=== PATIENT | female | born 1940 | race Caucasian/White ===

== ENCOUNTER 2016-05-08 10:48 | Inpatient (IN) | payer MEDICARE, SELFPAY ==
[~2016-05-08] VITALS: Ht 149.9 cm; Wt 59.0 kg
[2016-05-08] MEDS ORDERED: ALBU17IN2 INH (11:08)
[2016-05-08] MEDS ORDERED: ACET500C PO (11:08)
[2016-05-08] MEDS ORDERED: CART240C PO (11:10)
[2016-05-08] MEDS ORDERED: NORC5TAB PO (11:11)
[2016-05-08] MEDS ORDERED: LISI40TAB PO (11:13)
[2016-05-08] MEDS ORDERED: LABE20TAB PO (11:14)
[2016-05-08] MEDS ORDERED: AUGM875T27 PO (11:14)
[2016-05-08 11:44] LABS: BASO % 0.3 % (0.0-1.0); EOS # 0.2 K/mm3 (0.0-0.50); EOS % 1.4 % (0.0-3.0); LARGE UNSTAINED CELL # 0.1 K/mm3 (0.0-0.4); LARGE UNSTAINED CELL % 0.9 % (0.0-4.0); LYMPH # 0.9 K/mm3 (1.5-4.5); LYMPH % 7.6 % (24.0-44.0); MEAN CORPUSCULAR HEMOGLOBIN 31.6 pg (27.0-33.0); MEAN CORPUSCULAR HGB CONC 32.2 g/dl (32.0-36.5); MONO # 0.5 K/mm3 (0.0-0.8); MONO % 4.3 % (0.0-5.0); NEUTROPHILS # 9.5 K/mm3 (1.8-7.7); NEUTROPHILS % 85.6 % (36.0-66.0); PLATELET COUNT, AUTOMATED 512 k/mm3 (150-450); WHITE BLOOD COUNT 11.1 K/mm3 (4.0-10.0)
[2016-05-08] MEDS ORDERED: NS 500 ML IV ONE (11:45)
[2016-05-08 12:02] LABS: ALBUMIN/GLOBULIN RATIO 0.39 (1.00-1.93); ALKALINE PHOSPHATASE 79 U/L (45-117); ALT/SGPT 27 U/L (12-78); ANION GAP 10 MEQ/L (8-16); AST/SGOT 34 U/L (15-37); BILIRUBIN,DIRECT 0.2 MG/DL (0.0-0.2); BILIRUBIN,TOTAL 0.5 MG/DL (0.2-1.0); BLOOD UREA NITROGEN 41 MG/DL (7-18); CALCIUM LEVEL 13.3 MG/DL (8.8-10.2); CARBON DIOXIDE LEVEL 28 MEQ/L (21-32); CHLORIDE LEVEL 99 MEQ/L (98-107); CREATININE FOR GFR 0.94 MG/DL (0.55-1.02); GLOMERULAR FILTRATION RATE > 60.0 (>39); GLUCOSE, FASTING 96 MG/DL (83-110); POTASSIUM SERUM 4.3 MEQ/L (3.5-5.1); SODIUM LEVEL 137 MEQ/L (136-145); TOTAL PROTEIN 7.1 GM/DL (6.4-8.2)
[2016-05-08] MEDS ORDERED: NS 1,000 ML IV ONE (12:30)
[2016-05-08] MEDS ORDERED: ACET50TAOT PO (14:11)
[2016-05-08] MEDS ORDERED: SENO8.6T2 PO (14:11)
[2016-05-08] MEDS ORDERED: STOO100C PO (14:11)
[2016-05-08] MEDS ORDERED: ISOVUE-370 76% 100ML VIAL (Q9967) As Ordered ONE (15:06)
[2016-05-08] MEDS ORDERED: NS 1,000 ML IV SCH (15:30)
[2016-05-08] MEDS ORDERED: MOM 30ML SUSPENSION UDC PO PRN (15:30)
[2016-05-08] MEDS ORDERED: ALBUTEROL 90 MCG/ACT 8GM HFA INHALER INH PRN (15:30)
[2016-05-08 16:00] VITALS: BP 172/58
[2016-05-08] MEDS ORDERED: LISINOPRIL 40 MG TAB PO ONE (17:30)
--- NOTE | 2016-05-08 17:31 | HPE ---
DATE OF ADMISSION: 05/08/2016 Ms. Nguyen is a patient of Dr. Griggs. CHIEF COMPLAINT: Lack of energy. SUMMARY OF PRESENTATION: This is a 76-year-old female who has had decreasing levels of activity over a period of 3 to 4 months. She has been sleeping in a chair on the first floor because she does not have the energy at night to go upstairs. It has been much worse since 04/19/2016 when she had a skin cancer removed from her right mandibular region at [facility]. Since that time, she has had decreasing appetite. She has increasing weakness. She has been unable to get out of bed without help. Has been unable to get out of the bath without help. She currently lives alone, but her family has been staying with her sometimes at night and coming twice a day to check on her. Yesterday they could not get her up out of the tub. She has been on the bed and recliner enough that she has developed a decubitus ulcer. She has not had a bowel movement since the . The family has been quite concerned about her and brought her to the hospital today. In the hospital some workup was begun and she was found to be hypercalcemic, and I was called for admission. SOCIAL HISTORY: She lives in [place], where she has lived for many years. She says that she quit smoking 30 years ago, but family says that she has taken up smoking again. Not using any alcohol. Before her recent fatigue and lack of energy, she has been independent in her activities of daily living. PAST MEDICAL HISTORY: Notable for: 1. Hypertension. 2. Pain in both lower extremities, which has been chronic. 3. Bilateral carotid bruits. 4. Basal cell carcinoma, presumably on her right face. PAST SURGICAL HISTORY: Notable for: 1. Tubal ligation. 2. Exploratory laparoscopy in 1973. 3. Removal of the skin cancer from her face in April 2016. FAMILY HISTORY: Both parents are . REVIEW OF SYSTEMS: Notable for no headache. No visual changes. She is easily fatigued. Decreasing appetite. No chest pain. No shortness of breath. She has never had a colonoscopy. She has never had a mammogram. She does have what appears to be orthopnea and lower extremity edema, which is a new finding. She does not describe any abdominal discomfort. She has had some nausea recently but no vomiting. No dysuria. No focal weakness. No history of seizures. Otherwise, unremarkable. PHYSICAL EXAMINATION: VITAL SIGNS: Temperature is 97.3, pulse 74, respiratory rate 16, blood pressure 150/67, 94% on room air. Input and output notable for a positive fluid balance of 1500. Weight 63 kg. She is awake, appropriately interactive, although she appears tired. Body Mass Index (BMI) is 28.3. HEENT: Head is normocephalic. Sinuses are nontender. Pupils are equally round and reactive. Anicteric. Nasal septum is midline. Mucous membranes are tacky. Neck is supple. No cervical or supraclavicular adenopathy. LUNGS: Breathing is symmetrically diminished. I:E ratio is 1:3. No wheezes, rales or rhonchi. No accessory muscle use. She is speaking in complete sentences. HEART: Distant sounding. Normal S1, S2. Radial pulses are 2+. No costovertebral angle tenderness. No sacral edema. ABDOMEN: Doughy, soft, mild diffuse tenderness without rebound or guarding. There are no cervical, supraclavicular, axillary, epitrochlear, inguinal area nodes noted. BREASTS: Examination is done, which shows fibrocytic changes posterior to the nipple on the right breast. EXTREMITIES: There is trace bilateral lower extremity edema. On the sacrum there is a less than dime-sized, stage II decubitus with a larger area of stage I decubitus surrounding. NEUROLOGIC: Strength in the upper extremities is 4+, lower extremities is 4+. Facies are symmetrical. She has a flattened affect. White cell count is 11.1, hemoglobin 11, platelets are 512. Sodium is 137, potassium 4.3, chloride 99, bicarbonate 28, BUN 41, creatinine 0.9, glucose 96, calcium is 13.3 with a ionized calcium of 6.7, SPEP is pending. Vitamin D level is pending. TSH is within normal limits. Intact PTH is pending. She does have an area of eschar on her right mandibular area, which is quite large. There is minimal erythema around the edge and evidence of granulation tissue. It is nontender. Wound culture was sent. ASSESSMENT: This is a 76-year-old with hypercalcemia, who will be admitted for at least 2 midnights for further workup. Concern would be that this is hypercalcemia of malignancy, given the fact that she has had no screening examinations and has never had a calcium level before. PLAN: 1. For hypercalcemia. The patient will be started empirically on IV fluids. We will check a vitamin D level, intact PTH level. Protein is high relative to a low albumin. We will check SPEP, UPEP, screening mammogram is ordered, especially since she has findings on the right breast, which are likely fibrocystic changes based on my examination. We will also get a CT of the chest and a CT of the abdomen and pelvis. 2. The patient has right facial wound, status post surgery. We will get old records. It does not appear to be infected to me at this time. We will attempt to obtain pathology results as well. 3. The patient has constipation, most likely related to pain medications post procedure, as well as the patient is prone constipation and perhaps worsened with hypercalcemia. We will start a bowel regimen. 4. The patient has hypertension. We will continue blood pressure medications with hold parameters and monitor clinically. 5. Deep vein thrombosis (DVT) prophylaxis will be mechanical, as the patient has a strong aversion to needles. MADELINE
[2016-05-08] MEDS: LISINOPRIL 40 MG TAB PO SCH (17:53)
[2016-05-08] MEDS: BISACODYL 10 MG SUPP PR PRN (18:59)
[2016-05-08 19:18] VITALS: BP 170/60
[2016-05-08] MEDS ORDERED: MAGNESIUM CITRATE 300 ML BTL PO ONE (19:30)
[2016-05-08] MEDS: LABETALOL 200 MG TAB PO SCH (20:31)
[2016-05-08 23:30] VITALS: BP 170/60
[2016-05-09] VITALS (8 sets, daily range): BP systolic 122–158; BP diastolic 52–70
[2016-05-09] MEDS ORDERED: FUROSEMIDE 40 MG/4 ML VIAL (J1940) IV ONE
[2016-05-09] MEDS: hydrALAZINE INJ 20 MG/ML VIAL IV SCH ×3 (00:54→16:51)
[2016-05-09 05:45] LABS: MEAN CORPUSCULAR HEMOGLOBIN 31.4 pg (27.0-33.0); MEAN CORPUSCULAR HGB CONC 32.1 g/dl (32.0-36.5); MEAN CORPUSCULAR VOLUME 97.8 fl (80.0-96.0); RED CELL DISTRIBUTION WIDTH 15.1 % (11.5-14.5); WHITE BLOOD COUNT 12.6 K/mm3 (4.0-10.0)
[2016-05-09 06:05] LABS: ALBUMIN 1.7 GM/DL (3.2-5.2); ALBUMIN/GLOBULIN RATIO 0.41 (1.00-1.93); ALKALINE PHOSPHATASE 72 U/L (45-117); ALT/SGPT 27 U/L (12-78); ANION GAP 10 MEQ/L (8-16); AST/SGOT 41 U/L (15-37); BILIRUBIN,TOTAL 0.4 MG/DL (0.2-1.0); BLOOD UREA NITROGEN 25 MG/DL (7-18); CALCIUM LEVEL 11.6 MG/DL (8.8-10.2); CARBON DIOXIDE LEVEL 28 MEQ/L (21-32); CHLORIDE LEVEL 105 MEQ/L (98-107); CREATININE FOR GFR 0.71 MG/DL (0.55-1.02); GLOMERULAR FILTRATION RATE > 60.0 (>39); GLUCOSE, FASTING 101 MG/DL (83-110); MAGNESIUM LEVEL 2.2 MG/DL (1.8-2.4); POTASSIUM SERUM 3.6 MEQ/L (3.5-5.1); SODIUM LEVEL 143 MEQ/L (136-145); TOTAL PROTEIN 5.8 GM/DL (6.4-8.2)
[2016-05-09 07:36] LABS: TOTAL PROTEIN 7.1 GM/DL (6.4-8.2)
--- NOTE | 2016-05-09 07:52 | REP ---
CT CHEST WITH IV CONTRAST: CT chest is performed with the intravenous administration of 100 mL of Isovue 370. Sagittal and coronal reconstruction images are performed. There is a huge necrotic mass in the right upper lob anteriorly which borders the right hilum and mediastinum with a broad base and extends to the anterior chest wall and invades the chest wall. The mass measures approximately 9.8 x 9.6 cm. Central necrosis is present and there is peripheral irregular enhancement. There is invasion of the right lateral margin of the sternum. There is invasion and destruction at the anterior end of the right 4th rib. There is no obstruction of the superior vena cava although the mass is directly lateral to the superior vena cava. The mass is contiguous with adenopathy in the right hilum measuring 2.7 x 2.4 cm. There appears to be necrotic adenopathy in the right precarinal region 2.9 x 2.2 cm. There are a few subcentimeter lymph nodes in the subcarinal region. There is a nodule in the right upper lobe more superiorly measuring 7 mm in diameter. Another nodule is seen in the right lower lobe peripherally measuring 8 mm in diameter. A nodule is seen in the left lower lobe 1.4 cm in diameter. Moderate bilateral pleural effusions are seen right greater than left. There is bibasilar atelectasis/infiltrate. Small pericardial effusion is also present. The heart is not enlarged. There are atherosclerotic calcifications of the thoracic aorta without aneurysm. There are degenerative changes of the spine. The huge right upper lobe mass does appear to invade the pericardium at the junction of the superior vena cava and right atrium. IMPRESSION: Huge right upper lobe mass invades the right anterior chest wall, with destruction of a portion of the anterior right 4th rib and a portion of the medial margin of the sternum. The mass extends to the right hilum with contiguous adenopathy at that location. There is also a necrotic mediastinal adenopathy. Two smaller right lung nodules are seen and there is a left lung nodule as well. There are moderate bilateral pleural effusions and bibasilar atelectasis/infiltrate. Small pericardial effusion. The huge right upper lobe mass does appear to invade the pericardium at the junction of the superior vena cava and right atrium. Signed by Tye Gomes MD 05/09/2016 04:09 P
--- NOTE | 2016-05-09 07:55 | REP ---
CT ABDOMEN AND PELVIS WITH CONTRAST: TECHNIQUE: Axial contrast enhanced images from the lung bases to the pubic symphysis using 100 mL Isovue 370 intravenous contrast material with multiplanar reformations. The liver, spleen, and pancreas demonstrate no mass. The adrenal glands are diffusely thickened without a discrete mass. A small cyst is seen in the mid right kidney posteriorly. There is no hydronephrosis. There is ectasia of the distal abdominal aorta with moderate atherosclerotic calcification. The right common iliac artery appears stenotic. No significant adenopathy is seen in the abdomen or pelvis. The gallbladder appears unremarkable. There is no bowel wall thickening. There is no free air or free fluid. I see no pelvic mass. The urinary bladder appears unremarkable. IMPRESSION: Diffuse thickening of the adrenal glands without a discrete mass. Right renal cyst. No suspicious mass or adenopathy. 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 Signed by Tye Gomes MD 05/09/2016 04:10 P
--- NOTE | 2016-05-09 08:19 | ECGEPIP ---
Stationary ECG Study [facility] Test Date: 2016-05-09 Pat Name: TREV GEORGE Department: Room: [place] [address] Gender: F Material Carrier: CIELO : 1940 Requested By: CHRISTOPHER Stewart Order Number: [id number] Reading MD: Coleen Ramirez Measurements Intervals [place] Rate: 50 P: 5 WI: 162 QRS: -28 QRSD: 113 T: 94 QT: 425 QTc: 388 Interpretive Statements SINUS BRADYCARDIA BORDERLINE LEFT AXIS DEVIATION MODERATE INTRAVENTRICULAR CONDUCTION DELAY Incomplete left bundle branch block ST & T-WAVE ABNORMALITY CLINICAL CORRELATION NO PRIOR Electronically Signed On 05-09-2016 8:19:08 EST by Coleen Ramirez
[2016-05-09] MEDS: FLEET ENEMA PR PRN ×2 (10:03→10:23)
[2016-05-09] MEDS: BISACODYL 10 MG SUPP PR PRN (10:23)
--- NOTE | 2016-05-09 10:24 | REPMRS ---
Patient History The patient states she had a clinical breast exam in May 2016. Patient is postmenopausal. No known family history of cancer. Best films possible due to patient condition and exam done in wheelchair Digital Mammo Diagnostic Bilateral: May 08, 2016 - Exam #: [id number] Bilateral CC and MLO view(s) were taken. Technologist: Rafaela Carrasco, Technologist FINDINGS: There are scattered fibroglandular densities. There is no evidence of cancer on this mammogram. Large coarse benign appearing calcifications are present. ASSESSMENT: BI-RADS/ACR category 2 mammogram. Benign finding(s). Recommendation Routine screening mammogram of both breasts in 1 year (for women over age 40). This mammogram was interpreted with the aid of an FDA-approved computer-aided dectection system. Electronically Signed By: Tye Gomes MD 05/09/16 [id number]
[2016-05-09] MEDS: NS 1,000 ML IV SCH ×2 (11:13)
[2016-05-09] MEDS ORDERED: LIDOCAINE 1% MDV 20ML VIAL As Ordered ONE (11:51)
[2016-05-09 12:29] LABS: ALBUMIN 2.46 GM/DL (3.29-5.55); ALBUMIN % 34.6 % (55.8-66.1); GAMMA GLOBULIN % 20.9 % (11.1-18.8)
--- NOTE | 2016-05-09 13:56 | IPNPDOC ---
Text Note Date of Service The patient was seen on 05/09/16. NOTE Subjective: Patient is a 76 year old female with a PMHx of HTN, Chronic pain in b/ l Lower Extremities, b/l Carotid Bruits, Basal Cell CA - s/p resection (04/19) who presented to the ER with complaints of worsening weakness and fatigue for 3- 4 months. She is unable to complete her activities of daily living and unable to ambulate at this point. She has been in a recliner for a prolonged period of time and has developed a decubitus ulcer. She has been noted to have constipation, has not had a bowel movement since . Patient was brought to the ER and was found to have hypercalcemia. Patient was started on IV fluid hydration. Overnight on 05/08-05/09 patient became hypoxic and was started on nasal cannula oxygen and given lasix. Patient was seen and examined at the bedside. She does not have any complaints. Objective: Vitals (See below) General: Lying in bed, no acute distress, comfortable, AAOx3 HEENT: NC, AT CVS: RRR, +S1S2 Lungs: Fair air entry b/l, + crackles at b/l lung kennedy Abdomen: Soft, ND, NT, +BSx4 Extremities: +PPx4, - Edema, - Calf tenderness Assessment and plan 1. Symptomatic hypercalcemia - likely 2/2 malignancy - Presented with weakness, fatigue and constipation, flattened affect - Physical reveals palpable mass on chest wall - Presenting corrected calcium at 14.5; currently trending down at 13.4 - PTH, PTHrP and Vitamin D (25OH) pending - CT chest 05/09: huge right upper lobe mass invades R anterior chest wall, destruction of anterior R 4th rib, extends to r hilum and pericardium, + necrotic adenopathy - Will c/w IV fluid hydration and Lasix 40 IV Q12H 2. Large mass at right upper lobe - highly suspicious of malignancy - will go for CT guided biopsy today for tissue diagnosis - will discuss with oncology; patient doesn't appear to be a good surgical candidate or a chemotherapy candidate 3. Acute hypoxic respiratory failure - likely 2/2 fluid overload - will c/w lasix 4. Constipation - possibly 2/2 hypercalemia - patient denied any abdominal pain or symptoms - patient has had a large BM on 05/09 AM - s/p Enema - will c/w stool softeners 5. Right facial wound - 2/2 to Basal Cell CA resection - s/p surgery on 04/19 - will obtain records 6. Macrocytic anemia - Hg slightly lower than admission - likely 2/2 dilution from IV fluid hydration - Will continue to follow 7. HTN - BP well controlled - c/w Lisinopril and Furosemide 8. DVT prophylaxis - c/w SCDs VS,Fishbone, I+O VS, Fishbone, I+O Laboratory Tests 05/09/16 04:55 Calcium Level 11.6 H, Aspartate Amino Transf (AST/SGOT) 41 H, Alanine Aminotransferase (ALT/SGPT) 27, Alkaline Phosphatase 72, Total Bilirubin 0.4, Total Protein 5.8 L, Albumin 1.7 L, Red Blood Count 3.09 L, Mean Corpuscular Volume 97.8 H, Mean Corpuscular Hemoglobin 31.4, Mean Corpuscular Hemoglobin Concent 32.1, Red Cell Distribution Width 15.1 H Vital Signs Date Time Temp Pulse Resp B/P Pulse Ox O2 Delivery O2 Flow Rate FiO2 05/09/16 08:00 138/66 05/09/16 08:00 96.7 52 18 95 Nasal Cannula 2.0 I&O- Last 24 Hours up to 6 AM 05/09/16 06:00 Intake Total 2490 ml Output Total 1150 ml Balance 1340 ml ABI CHU MD May 09, 2016 13:56
--- NOTE | 2016-05-09 15:23 | REP ---
SINGLE VIEW CHEST: Single AP view of the chest is performed status post right lung biopsy. There is no pneumothorax. The large right lung mass is seen opacifying the majority of the right hemithorax. IMPRESSION: No pneumothorax status post right lung biopsy. Signed by Tye Gomes MD 05/09/2016 04:19 P
[2016-05-09] MEDS: FUROSEMIDE 40 MG/4 ML VIAL (J1940) IV SCH (16:52)
--- NOTE | 2016-05-09 17:20 | REP ---
ULTRASOUND GUIDED RIGHT LUNG BIOPSY: The procedure was performed under the direct supervision of Dr. Gomes. The patient has a history of a right upper lobe mass seen on a previous CAT scan dated 05/08/2016. The risks and benefits of the procedure were explained and informed consent was obtained by the health care proxy. The right upper lobe lung mass was localized using ultrasound guidance. The skin was prepped and draped in a sterile fashion. 1% Xylocaine was used as a local anesthetic. Using ultrasound guidance a 19/20-gauge coaxial needle biopsy system was inserted and advanced into the mass. 3 core biopsy samples were obtained and sent to the lab. The patient tolerated the procedure well and there were no immediate complications. Reviewed by ROSE MARIE Patino 05/10/2016 01:27 PEdited and Signed by Tye Gomes MD 05/10/2016 08:04 P
[2016-05-09] MEDS: LISINOPRIL 40 MG TAB PO SCH (19:50)
[2016-05-09] MEDS: LABETALOL 200 MG TAB PO SCH (19:51)
[2016-05-09] MEDS: NORCO, ANEXSIA 5/325MG TABLET (HYDROcodone/ACETAMINOPHEN) PO PRN (19:51)
[2016-05-09] MEDS: AQUAPHOR **100GM** OINT TOP SCH (19:52)
--- NOTE | 2016-05-09 20:26 | ECGEPIP ---
Stationary ECG Study [facility] - ED Test Date: 2016-05-08 Pat Name: TREV GEORGE Department: Room: - Gender: F Pomology Teacher: lashonda : 1940 Requested By: Conner Olmos Order Number: [id number] Reading MD: Conner Cruz Measurements Intervals [place] Rate: 75 P: MO: 0 QRS: -29 QRSD: 112 T: 141 QT: 396 QTc: 445 Interpretive Statements [employer] RBBB ST DEVIATION AND MODERATE T-WAVE ABNORMALITY, CONSIDER LATERAL ISCHEMIA NO PRIORS Electronically Signed On 05-09-2016 20:25:43 EST by Conner Cruz
[2016-05-09] MEDS: ONDANSETRON 4MG/2ML VIAL (J2405) IV PRN (21:01)
[2016-05-10 04:00] VITALS: BP 130/62
[2016-05-10] MEDS: ACETAMINOPHEN TAB 650MG DOSE (2X325MG) PO PRN ×2 (04:02→14:18)
[2016-05-10 05:57] LABS: MEAN CORPUSCULAR HEMOGLOBIN 32.2 pg (27.0-33.0); MEAN CORPUSCULAR VOLUME 100.5 fl (80.0-96.0); RED CELL DISTRIBUTION WIDTH 15.1 % (11.5-14.5); WHITE BLOOD COUNT 9.3 K/mm3 (4.0-10.0)
[2016-05-10 06:11] LABS: ALBUMIN 1.7 GM/DL (3.2-5.2); ALBUMIN/GLOBULIN RATIO 0.44 (1.00-1.93); ALKALINE PHOSPHATASE 59 U/L (45-117); ALT/SGPT 32 U/L (12-78); ANION GAP 6 MEQ/L (8-16); AST/SGOT 38 U/L (15-37); BILIRUBIN,TOTAL 0.2 MG/DL (0.2-1.0); BLOOD UREA NITROGEN 19 MG/DL (7-18); CALCIUM LEVEL 10.6 MG/DL (8.8-10.2); CARBON DIOXIDE LEVEL 31 MEQ/L (21-32); CHLORIDE LEVEL 105 MEQ/L (98-107); GLOMERULAR FILTRATION RATE > 60.0 (>39); GLUCOSE, FASTING 103 MG/DL (83-110); MAGNESIUM LEVEL 2.1 MG/DL (1.8-2.4); POTASSIUM SERUM 3.5 MEQ/L (3.5-5.1); SODIUM LEVEL 142 MEQ/L (136-145); TOTAL PROTEIN 5.6 GM/DL (6.4-8.2)
[2016-05-10] MEDS: NS 1,000 ML IV SCH (07:51)
[2016-05-10] MEDS: hydrALAZINE INJ 20 MG/ML VIAL IV SCH ×3 (08:00→16:00)
[2016-05-10] MEDS ORDERED: INFLUENZA VIRUS VACCINE HIGH DOSE 0.5 ML SYRINGE (90662) IM ONE (09:00)
[2016-05-10] MEDS ORDERED: PREVNAR 13 VACCINE SYRINGE (CPT CODE:90670) IM ONE (09:00)
[2016-05-10] MEDS: FUROSEMIDE 40 MG/4 ML VIAL (J1940) IV SCH ×2 (10:35→18:46)
[2016-05-10] MEDS: AQUAPHOR **100GM** OINT TOP SCH ×2 (10:35→21:25)
[2016-05-10 12:00] VITALS: BP 134/50
--- NOTE | 2016-05-10 13:27 | IPNPDOC ---
Text Note Date of Service The patient was seen on 05/10/16. NOTE Subjective: 76 yo F was seen and examined at bedside. She denies any dizziness, blurred vision, fevers, chills, chest pain, SOB, nausea, vomiting, diarrhea, constipation, abdominal pain, rashes/lesions, urinary incontinence, dysuria, hematuria, hematochezia. Admits to a bowel movement yesterday which occurred after using an enema. Admits to weakness and fatigue. She reports no acute events overnight. Objective: Vitals: T 97.1 , P 55 (52~12 AM), RR 18 (20 at ~12 AM), BP 130/62 (84), Pulse Ox: 96% on 2L NC. I's/O's: 180/0 with +180 mLs balance. UO: 0 mLs. General: Pleasant thin cachectic elderly female resting comfortably in bed, sitting up eating breakfast. Has R-sided lower jaw facial wound/basal cell carinoma site. Patient awake, alert and oriented, verbal and able to answer questions appropriately. She does not appear to be in any acute distress. HEENT: Normocephalic Atraumatic. Grossly normal hearing bilaterally. Sclera Nonicteric. No external nasal lesions. Endocrinology: No thyromegaly. Neck: Supple. No cervical LAD bilaterally. Heart: Regular rate and rhythm, normal S1-S2. No murmurs, rubs, clicks or gallops Chest: Protuberance/mass on anterior upper mid-chest wall. Lungs: Clear to auscultation bilaterally with diminished breath sounds in all lung kennedy. Increased inspiratory to expiratory ratio. No wheezes, rales or rhonchi. Abdomen: Active bowel sounds, soft, nontender, no masses to palpation. Extremities: No clubbing, cyanosis, edema. Without amputations/deformities. No pedal edema. MSK: Can sit up without dizziness. Vascular: +2 radial pulses bilaterally. Psychiatric: Flat affect. Laboratory data: Please see below. Microbiology: Please see below. Wound Cx pending from facial lesion Pathology: FNA of Lung Biopsy Pending Electrophoresis: shows hypoalbuminemia. Increased alpha 1&2 fraction suggests acute inflammation but a co-migrating monoclonal band cannot be ruled out. Recommendation from pathology: serum and urine immunotyping. Atypical shape of gamma region noted. Unable to definitively determine the presence of atypical bands. Follow up in 6-9 months recommended if patient's symptoms warrant. Imaging: No new imaging today. 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 1) Hypercalcemia: Calcium trending down and was 10.6 today decreased from 11.6 yesterday. Continue IVF hydration and lasix. 2) Large RUL Lung Mass: CT guided biopsy/FNA done yesterday. Awaiting biopsy results. Will consider Oncology consult if malignancy identified. 3) Acute hypoxic respiratory failure: Patient satting 96% on 2 L nasal cannula. Continue lasix 40 mg BID. Monitor renal function and electrolytes with BMP. Replete electrolytes as necessary. 4) Leukocytosis: WBC trending down and WNL today at 9.3 from 12.6. Continue to monitor CBC and for fevers. 5) Macrocytic Anemia: Hgb decreased to 9.3 from 9.7 yesterday. Likely dilutional from IV hydration. Continue to monitor. 6) Hypertension: BP is stable and WNL. Continue lisinopril and lasix. 7) Constipation: Likely secondary to pain medication and hypercalcemia. Continue bowel regimen PRN: sodium biphosphate enema, magnesium hydroxide, dulcolax suppository. Had BM last night after enema. 8) Right Facial Wound/Secondary to Basal Cell Carcinoma Resection status-post Surgery on 04/19/16: continue to monitor. 9) DVT ppx: continue mechanically SCDs. Immunizations as per protocol. VS,Fishbone, I+O VS, Fishbone, I+O Laboratory Tests 05/10/16 05:29 Calcium Level 10.6 H, Aspartate Amino Transf (AST/SGOT) 38 H, Alanine Aminotransferase (ALT/SGPT) 32, Alkaline Phosphatase 59, Total Bilirubin 0.2, Total Protein 5.6 L, Albumin 1.7 L, Red Blood Count 2.88 L, Mean Corpuscular Volume 100.5 H, Mean Corpuscular Hemoglobin 32.2, Mean Corpuscular Hemoglobin Concent 32.0, Red Cell Distribution Width 15.1 H Vital Signs Date Time Temp Pulse Resp B/P Pulse Ox O2 Delivery O2 Flow Rate FiO2 3/7/17 08:00 115/50 05/10/16 08:00 96.3 54 20 98 Nasal Cannula 2.0 I&O- Last 24 Hours up to 6 AM 05/10/16 06:00 Intake Total 1620 ml Output Total 200 ml Balance 1420 ml GME ATTESTATION GME ATTESTATION My preceptor for this patient encounter was Dr. Bob Chavez, and was physically present in the building during the encounter and was fully available. As needed, all aspects of the patient interview, examination, medical decision making process, and medical care plan development were reviewed and approved by the preceptor. Preceptor is aware and concurs with the plan as stated in the body of this note and will attest to such by his/her cosignature. BOB SCHULTZ OGME-1 May 10, 2016 13:27
[2016-05-10 20:00] VITALS: BP 126/60
[2016-05-10] MEDS ORDERED: PAMIDRONATE DISODIUM FOR INJ 60 MG in D5W 1,000 ML IV ONE (20:00)
[2016-05-10] MEDS: LISINOPRIL 40 MG TAB PO SCH (21:03)
[2016-05-10] MEDS: NORCO, ANEXSIA 5/325MG TABLET (HYDROcodone/ACETAMINOPHEN) PO PRN (21:04)
[2016-05-10] MEDS: LABETALOL 200 MG TAB PO SCH (21:05)
[2016-05-10 23:59] VITALS: BP 132/62
[2016-05-11] MEDS: NS 1,000 ML IV SCH (02:22)
[2016-05-11 04:00] VITALS: BP 118/57
--- NOTE | 2016-05-11 05:49 | ECHO ---
DATE OF PROCEDURE: 05/10/2016 REFERRING PHYSICIAN: Dr. Ayush Guerrero. INDICATION: Localized edema. MEASUREMENTS: Left atrium: 4.1 cm Aortic root: 2.8 cm Ventricular septum: 1.19 cm Posterior wall: 1.15 cm Left ventricle diastole: 4.4 cm LVOT: 1.9 cm Inferior vena cava: 1.8 cm (more than 50% respiratory variation). DOPPLER MEASUREMENTS: Aortic valve velocity: 179 cm/s LVOT velocity: 95.9 cm/s LVOT VTI: 16.5 cm Very mild mitral regurgitation. Mitral E velocity: 92.5 cm/s Mitral A velocity: 99.3 cm/s Mitral deacceleration time: 218 ms Mild pulmonic regurgitation. MITRAL ANNULAR TISSUE DOPPLER: E-prime septal: 4.6 cm/s E-prime lateral: 7.6 cm/s DESCRIPTION: Rhythm was sinus. This was a moderately technically difficult echocardiogram. This was a 2D, M-mode, color flow Doppler and pulsed wave Doppler examination and included mitral annular tissue Doppler. CONCLUSIONS: 1. Normal left ventricle internal dimensions and wall thickness. No regional wall motion abnormalities. Normal LV systolic function. LVEF 65% by visual estimate. Grade 1 LV diastolic dysfunction. 2. Mild left atrial dilatation. 3. Small pericardial effusion. No diastolic chamber collapse. No significant respiratory variation of intracardiac velocities. 4. Suggestive of central venous pressure in the range of 5-10 mmHg. 5. Unable to adequately assess pulmonary artery systolic pressure or estimated RV systolic pressure on this study. 6. Mild aortic valve sclerosis of a 3-cusp aortic valve. 7. Mild mitral annular calcification. Very mild mitral regurgitation.
[2016-05-11 05:53] LABS: MEAN CORPUSCULAR HEMOGLOBIN 31.9 pg (27.0-33.0); MEAN CORPUSCULAR HGB CONC 31.8 g/dl (32.0-36.5); MEAN CORPUSCULAR VOLUME 100.5 fl (80.0-96.0); RED CELL DISTRIBUTION WIDTH 14.9 % (11.5-14.5); WHITE BLOOD COUNT 10.5 K/mm3 (4.0-10.0)
[2016-05-11 06:09] LABS: ALBUMIN 1.7 GM/DL (3.2-5.2); ALBUMIN/GLOBULIN RATIO 0.43 (1.00-1.93); ALKALINE PHOSPHATASE 61 U/L (45-117); ALT/SGPT 29 U/L (12-78); ANION GAP 5 MEQ/L (8-16); AST/SGOT 26 U/L (15-37); BILIRUBIN,TOTAL 0.2 MG/DL (0.2-1.0); BLOOD UREA NITROGEN 15 MG/DL (7-18); CALCIUM LEVEL 9.6 MG/DL (8.8-10.2); CARBON DIOXIDE LEVEL 32 MEQ/L (21-32); CHLORIDE LEVEL 100 MEQ/L (98-107); CREATININE FOR GFR 0.65 MG/DL (0.55-1.02); GLOMERULAR FILTRATION RATE > 60.0 (>39); GLUCOSE, FASTING 92 MG/DL (83-110); MAGNESIUM LEVEL 1.7 MG/DL (1.8-2.4); POTASSIUM SERUM 3.3 MEQ/L (3.5-5.1); SODIUM LEVEL 137 MEQ/L (136-145); TOTAL PROTEIN 5.7 GM/DL (6.4-8.2)
[2016-05-11 07:56] VITALS: BP 134/60
[2016-05-11] MEDS: hydrALAZINE INJ 20 MG/ML VIAL IV SCH ×2 (08:00)
[2016-05-11] MEDS ORDERED: POTASSIUM CHLORIDE 10 MEQ SR TABLET PO ONE ×2 (08:00→16:00)
--- NOTE | 2016-05-11 09:56 | REP ---
MRI BRAIN WITHOUT CONTRAST: HISTORY: Lung carcinoma. The examination is incomplete as only FLAIR and T2-weighted images were obtained. Areas of increased signal intensity on T2-weighted images are present in the periventricular and subcortical white matter. This represents small vessel ischemic disease. There is no intraparenchymal hemorrhage, infarct, mass or midline shift. The ventricular system and cortical sulci are dilated consistent with minimal volume loss. There is no extracerebral collection. Mucosal thickening is present in the right ethmoid sinus. IMPRESSION: 1. Limited examination demonstrating no definite mass. 2. Small vessel ischemic disease. 3. Minimal volume loss. Signed by Zane Pascual MD 05/11/2016 09:59 A
[2016-05-11] MEDS: FUROSEMIDE 40 MG/4 ML VIAL (J1940) IV SCH (10:13)
[2016-05-11] MEDS: AQUAPHOR **100GM** OINT TOP SCH ×2 (10:13→20:53)
[2016-05-11] MEDS: MAGNESIUM OXIDE 400 MG TAB (MAG-OX) PO SCH ×3 (10:13→20:43)
[2016-05-11] MEDS ORDERED: FUROSEMIDE 20 MG/2 ML VIAL (J1940) IV ONE (10:30)
[2016-05-11 13:00] VITALS: BP 134/62
[2016-05-11 14:00] VITALS: BP 139/62
[2016-05-11] MEDS ORDERED: FUROSEMIDE 40 MG/4 ML VIAL (J1940) IV ONE ×2 (16:00→21:00)
--- NOTE | 2016-05-11 18:14 | IPNPDOC ---
Text Note Date of Service The patient was seen on 05/11/16. NOTE Subjective: 76 yo F was seen and examined at bedside. She denies any dizziness, blurred vision, fevers, chills, chest pain, SOB while sitting up, nausea, vomiting, diarrhea, constipation, abdominal pain, rashes/lesions, urinary incontinence, dysuria, hematuria, hematochezia. Admits to weakness and fatigue. She reports no acute events overnight. Nursing reports that the patient had some liquid which leaked out from her surgical site when drinking fluids. Nursing also reports that patient was able to get up to the commode and will be getting physical therapy today. In addition, patient states she was taken for an MRI of the brain today during which she became SOB while lying flat. Nuclear medicine was going to take her for a bone scan which had been canceled today due patient's inability to lie flat. Objective: Vitals: T 97 , P 64, RR 19, BP 134/60 (84), Pulse Ox: 95% on 2L NC. I's/O's: 1700/0 mls with 0 balance. UO: 0 mLs. General: Pleasant thin cachectic elderly female resting comfortably in bed, sitting up in bed. Has R-sided lower jaw dark blue/black facial lesion. Patient awake, alert and oriented, verbal and able to answer questions appropriately. She does not appear to be in any acute distress. HEENT: Normocephalic Atraumatic other than surgical site area on anterior R neck and R low chin surgical site. Grossly normal hearing bilaterally. Sclera Nonicteric. No external nasal lesions. Endocrinology: No thyromegaly. Neck: Supple. No cervical LAD bilaterally. Enlarged neck veins. Heart: Regular rate and rhythm, normal S1-S2. No murmurs, rubs, clicks or gallops Chest: Protuberance/mass on anterior upper mid-chest wall. Lungs: +Crackles in middle and lower lung kennedy bilaterally with diminished breath sounds in upper lung kennedy. Increased inspiratory to expiratory ratio. No wheezes. Abdomen: Active bowel sounds, soft, nontender, no masses to palpation. Extremities: No clubbing, cyanosis. Tenderness to squeezing of calf muscles. No pedal or ankle edema appreciable. Without amputations/deformities. MSK: Can sit up without dizziness. Vascular: +2 radial pulses bilaterally. Psychiatric: Normal affect. Laboratory data: Please see below. Microbiology: Please see below. Wound Cx were positive for Staph species coagulase negative (few), strep viridans (few), and corynebacterium species (moderate). 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 Tumor necrosis noted. (-)4/TR. Imaging: MRI of Brain Without Contrast Done Today which showed: Areas of increased signal intensity on T2-weighted images are present in the periventricular and subcortical white matter. This represents small vessel ischemic disease. There is no intraparenchymal hemorrhage, infarct, mass or midline shift. The ventricular system and cortical sulci are dilated consistent with minimal volume loss. There is no extracerebral collection. Mucosal thickening is present in the right ethmoid sinus. Patient unable to tolerate lying flat due to SOB for nuclear bone scan. Echocardiogram on 05/08/16: showed Grade 1 LV Diastolic Dysfunction, mild L Atrial Dilitation, Small Pericardial Effusion, and a Normal LVEF of 65%. 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 1) Hypercalcemia: Calcium trending down and was 9.6 today decreased from 10.6 yesterday. Have discontinued IVF for now and have given 60 mg lasix IV to help with fluid overload that is possibly causing patient's SOB as patient was unable to lie flat due to SOB for MRI and bone scan studies. Will also give 40 mg IV lasix at 4 and 9 PM. Will reevaluate volume status in the AM, and determine whether patient SOB, and if able to obtain nuclear bone scan studies. Continue to monitor Ca levels and optimize volume status. Anticipate discharge in 24-48 hours. 2) Large RUL Lung Mass: CT guided biopsy/FNA done yesterday. Patient has at least a 30 year smoking history. Biopsy shows squamous cell carcinoma. Dr. Almaguer Oncologist was consulted and has seen patient. Dr. 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 Patient will also need a PET scan at some point as an outpatient and will need to have a follow up with the Oncology office as an outpatient for chemotherapy. Patient already has an appointment with Dr. Vazquez on Monday at 11: 15 AM. Obtaining nuclear bone scan for further evaluation of the spread of the cancer is pending due to patient's inability to lie flat due to SOB. Will reassess volume status in the AM and determine dosing/need for lasix as well as obtaining bone scan. In addition, patient had K of 3.3 and a Mg of 1.7 today possibly from lasix or IV fluid dilution, which were repleted. 3) Acute hypoxic respiratory failure: Patient satting 95% on 2 L nasal cannula. Will reassess volume status tomorrow morning. Monitor renal function and electrolytes with BMP. Replete electrolytes as necessary. 4) Leukocytosis: WBC has gone up from 9.3 yesterday to 10.5 today. Continue to monitor CBC and for fevers. 5) Macrocytic Anemia: Hgb stable at 9.3 today. Likely dilutional from IV hydration. Continue to monitor. 6) Hypertension: BP is stable and WNL. Continue lisinopril. 7) Constipation: Likely secondary to pain medication and hypercalcemia. Continue bowel regimen PRN: sodium biphosphate enema, magnesium hydroxide, dulcolax suppository. Had BM yesterday and today. 8) Grade 1 Left Ventricular Diastolic Heart Failure: No complaints of chest pain or SOB while sitting up in bed. No palpitations. Continue to monitor for any symptomatology. 9) Right Facial Wound/Secondary to Basal Cell Carcinoma Resection status-post Surgery on 04/19/16: continue to monitor for any active symptomatology and fevers. No treatment warranted from IM perspective at this time. 10) DVT ppx: continue mechanically SCDs. Immunizations as per protocol. VS,Fishbone, I+O VS, Fishbone, I+O Laboratory Tests 05/11/16 05:34 Calcium Level 9.6, Aspartate Amino Transf (AST/SGOT) 26, Alanine Aminotransferase (ALT/SGPT) 29, Alkaline Phosphatase 61, Total Bilirubin 0.2, Total Protein 5.7 L, Albumin 1.7 L, Red Blood Count 2.92 L, Mean Corpuscular Volume 100.5 H, Mean Corpuscular Hemoglobin 31.9, Mean Corpuscular Hemoglobin Concent 31.8 L, Red Cell Distribution Width 14.9 H Vital Signs Date Time Temp Pulse Resp B/P Pulse Ox O2 Delivery O2 Flow Rate FiO2 05/11/16 14:00 97.3 72 18 139/62 95 Nasal Cannula 2.0 I&O- Last 24 Hours up to 6 AM 05/11/16 06:00 Intake Total 3640 ml Output Total 400 ml Balance 3240 ml GME ATTESTATION GME ATTESTATION My preceptor for this patient encounter was Dr. Bob Chavez, and was physically present in the building during the encounter and was fully available. As needed, all aspects of the patient interview, examination, medical decision making process, and medical care plan development were reviewed and approved by the preceptor. Preceptor is aware and concurs with the plan as stated in the body of this note and will attest to such by his/her cosignature. BOB SCHULTZ OGME-1 May 11, 2016 18:14
[2016-05-11] MEDS: LISINOPRIL 40 MG TAB PO SCH (20:44)
[2016-05-11] MEDS: LABETALOL 200 MG TAB PO SCH (20:45)
[2016-05-11 22:00] VITALS: BP 137/67
[2016-05-11] MEDS ORDERED: **hydrALAZINE** 10 MG TAB PO SCH (22:00)
[2016-05-11] MEDS: ONDANSETRON 4MG/2ML VIAL (J2405) IV PRN (22:23)
[2016-05-11] MEDS: NORCO, ANEXSIA 5/325MG TABLET (HYDROcodone/ACETAMINOPHEN) PO PRN (22:35)
[2016-05-12 06:00] VITALS: BP 107/52
[2016-05-12] MEDS: **hydrALAZINE** 10 MG TAB PO SCH ×3 (06:00→22:00)
[2016-05-12 07:21] LABS: ALBUMIN 1.8 GM/DL (3.2-5.2); ALBUMIN/GLOBULIN RATIO 0.38 (1.00-1.93); ALKALINE PHOSPHATASE 67 U/L (45-117); ALT/SGPT 27 U/L (12-78); ANION GAP 10 MEQ/L (8-16); AST/SGOT 24 U/L (15-37); BILIRUBIN,TOTAL 0.3 MG/DL (0.2-1.0); BLOOD UREA NITROGEN 15 MG/DL (7-18); CALCIUM LEVEL 9.8 MG/DL (8.8-10.2); CARBON DIOXIDE LEVEL 34 MEQ/L (21-32); CHLORIDE LEVEL 105 MEQ/L (98-107); CREATININE FOR GFR 0.83 MG/DL (0.55-1.02); GLOMERULAR FILTRATION RATE > 60.0 (>39); GLUCOSE, FASTING 98 MG/DL (83-110); MAGNESIUM LEVEL 2.1 MG/DL (1.8-2.4); POTASSIUM SERUM 4.4 MEQ/L (3.5-5.1); SODIUM LEVEL 149 MEQ/L (136-145); TOTAL PROTEIN 6.5 GM/DL (6.4-8.2)
[2016-05-12 07:26] LABS: MEAN CORPUSCULAR HEMOGLOBIN 31.6 pg (27.0-33.0); MEAN CORPUSCULAR HGB CONC 32.2 g/dl (32.0-36.5); MEAN CORPUSCULAR VOLUME 98.2 fl (80.0-96.0); WHITE BLOOD COUNT 9.9 K/mm3 (4.0-10.0)
[2016-05-12] MEDS: AQUAPHOR **100GM** OINT TOP SCH ×2 (09:36→21:09)
[2016-05-12] MEDS: CALCITONIN SALMON (MIACALCIN) 400INTERNATIONAL UNITS/2ML INJ (J0630) SQ SCH ×2 (09:36→21:25)
[2016-05-12] MEDS: MAGNESIUM OXIDE 400 MG TAB (MAG-OX) PO SCH ×3 (09:36→21:06)
--- NOTE | 2016-05-12 09:51 | IPNPDOC ---
Text Note Date of Service The patient was seen on 05/12/16. NOTE Subjective: 76 yo F was seen and examined at bedside. She denies any dizziness, fevers, chills, chest pain, SOB while sitting up, nausea, vomiting, diarrhea, constipation, abdominal pain, rashes/lesions, dysuria, hematuria, hematochezia, or pain. Reports she feels alright. She reports no acute events overnight. Nursing reports that the patient had been administered pain medication overnight , but patient does not recall the type of pain she was having. Nursing also reports that patient was administered hydralazine due to elevated BP overnight, but this and other BP medications are held now due to patient's BP being 107/52 this AM. In addition, patient is hesitant to do nuclear bone scan today because she states it's difficult for her to lie flat for long periods of times. Nursing reports that the patient has had incontinent voids and urinated much more than fluids she has taken in by mouth. Objective: Vitals: T 96.9 , P 57, RR 18, BP 107/52 (70), Pulse Ox: 95% on 2L NC. I's/O's: 1820/1200 mls. Incontinent Voids: 4. BMs: 2 yesterday. General: Pleasant thin cachectic elderly female sitting up comfortably in chair. Has R-sided lower jaw dark blue/black facial lesion. Patient awake, alert and oriented, verbal and able to answer questions appropriately. She does not appear to be in any acute distress. HEENT: Normocephalic Atraumatic other than surgical site area on R anterior neck and R low jaw/chin BCC site. Grossly normal hearing bilaterally. Sclera Nonicteric. No external nasal lesions. Endocrinology: No thyromegaly. Neck: Supple. No cervical LAD bilaterally. Enlarged neck veins. Heart: Regular rate and rhythm, normal S1-S2. No murmurs, rubs, clicks or gallops Chest: Protuberance/mass on anterior upper mid-chest wall. Lungs: +Crackles in middle and lower lung kennedy bilaterally a bit improved from yesterday, with diminished breath sounds in upper lung kennedy. Increased inspiratory to expiratory ratio. No wheezes. Abdomen: Active bowel sounds, soft, nontender, no masses to palpation. Extremities: No clubbing, cyanosis. No pedal or ankle edema appreciable. Without amputations/deformities. MSK: Can sit up without dizziness. Vascular: +2 radial pulses bilaterally. Psychiatric: Normal affect. Laboratory data: Please see below. Imaging: No new imaging yet today. 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 1) Hypercalcemia: Have begun calcitonin 200 interunits q12 hours subq today. Calcium WNL today at 9.8. Have discontinued IVF for now. Will reassess for next dosing of lasix. Volume status seems improved from yesterday, however, patient still complaining she cannot lie flat for nuclear bone study. Will attempt to baby counselor, but if unable to tolerate the study, will have to cancel it and recommend for patient to do study as outpatient. Continue to monitor Ca levels and optimize volume status. Anticipate discharge in 24-48 hours. 2) Large RUL Lung Mass found to be Stage IV Squamous Cell Carcinoma/Lung Cancer with mets to the rib: Patient has at least a 30 year smoking history. Patient already has an appointment with Dr. Vazquez on Monday at 11:15 AM to follow up as an outpatient for assessment for chemotherapy. Nuclear bone scan to assess for spread of cancer may be canceled today due to patient's hesitancy and inability to tolerate lying flat. K and Mg were WNL today. Na was high at 149 today most likely due to diuresis effect, will continue to monitor this level and for any signs/symptoms of hypernatremia such as thirst, confusion, muscle twitching or spasms, etc. 3) Acute hypoxic respiratory failure: Patient satting 95% on 2 L nasal cannula. Monitor renal function and electrolytes with BMP. Replete electrolytes as necessary. 4) Leukocytosis: WBC has gone down from 10.5 yesterday to 9.9 today. Continue to monitor CBC and for fevers. 5) Macrocytic Anemia: Hgb stable at 9.7 today. Likely dilutional from IV hydration. Continue to monitor. 6) Hypertension: BP is a little low at 107/52. Will hold BP medications for now including hydralazine. 7) Constipation: Likely secondary to pain medication and hypercalcemia. Continue bowel regimen PRN: sodium biphosphate enema, magnesium hydroxide, dulcolax suppository. Had 2 BMs yesterday. 8) Grade 1 Left Ventricular Diastolic Heart Failure: No complaints of chest pain or SOB while sitting up in bed. No palpitations. Continue to monitor for any symptomatology. 9) Right Facial Wound/Secondary to Basal Cell Carcinoma Resection status-post Surgery on 04/19/16: continue to monitor for any active symptomatology and fevers. No treatment warranted from IM perspective at this time. 10) DVT ppx: continue mechanically SCDs. Immunizations as per protocol. VS,Fishbone, I+O VS, Fishbone, I+O Laboratory Tests 05/11/16 17:50 05/12/16 06:37 Calcium Level 9.8, Aspartate Amino Transf (AST/SGOT) 24, Alanine Aminotransferase (ALT/SGPT) 27, Alkaline Phosphatase 67, Total Bilirubin 0.3, Total Protein 6.5, Albumin 1.8 L, Red Blood Count 3.05 L, Mean Corpuscular Volume 98.2 H, Mean Corpuscular Hemoglobin 31.6, Mean Corpuscular Hemoglobin Concent 32.2, Red Cell Distribution Width 15.0 H Vital Signs Date Time Temp Pulse Resp B/P Pulse Ox O2 Delivery O2 Flow Rate FiO2 05/12/16 06:00 107/52 05/12/16 06:00 96.9 57 18 95 Nasal Cannula 05/11/16 21:00 2.0 I&O- Last 24 Hours up to 6 AM 05/12/16 06:00 Intake Total 960 ml Output Total 1200 ml Balance -240 ml GME ATTESTATION GME ATTESTATION My preceptor for this patient encounter was Dr. Bob Chavez, and was physically present in the building during the encounter and was fully available. As needed, all aspects of the patient interview, examination, medical decision making process, and medical care plan development were reviewed and approved by the preceptor. Preceptor is aware and concurs with the plan as stated in the body of this note and will attest to such by his/her cosignature. BOB SCHULTZ OGME-1 May 12, 2016 09:51
[2016-05-12] MEDS: ONDANSETRON 4MG/2ML VIAL (J2405) IV PRN ×2 (11:48→21:25)
[2016-05-12 14:00] VITALS: BP 132/61
[2016-05-12] MEDS: LISINOPRIL 40 MG TAB PO SCH (21:06)
[2016-05-12] MEDS: LABETALOL 200 MG TAB PO SCH (21:07)
[2016-05-12] MEDS: NORCO, ANEXSIA 5/325MG TABLET (HYDROcodone/ACETAMINOPHEN) PO PRN (21:08)
[2016-05-12 22:00] VITALS: BP 143/67
[2016-05-13 06:00] VITALS: BP 127/58
[2016-05-13 06:30] LABS: MEAN CORPUSCULAR HEMOGLOBIN 31.8 pg (27.0-33.0); MEAN CORPUSCULAR HGB CONC 32.2 g/dl (32.0-36.5); MEAN CORPUSCULAR VOLUME 98.9 fl (80.0-96.0); RED CELL DISTRIBUTION WIDTH 14.8 % (11.5-14.5); WHITE BLOOD COUNT 10.4 K/mm3 (4.0-10.0)
[2016-05-13] MEDS: **hydrALAZINE** 10 MG TAB PO SCH ×3 (06:46→21:48)
[2016-05-13 06:51] LABS: ALBUMIN 1.7 GM/DL (3.2-5.2); ALBUMIN/GLOBULIN RATIO 0.38 (1.00-1.93); ALKALINE PHOSPHATASE 65 U/L (45-117); ALT/SGPT 22 U/L (12-78); ANION GAP 6 MEQ/L (8-16); AST/SGOT 16 U/L (15-37); BILIRUBIN,TOTAL 0.2 MG/DL (0.2-1.0); BLOOD UREA NITROGEN 16 MG/DL (7-18); CALCIUM LEVEL 9.2 MG/DL (8.8-10.2); CARBON DIOXIDE LEVEL 33 MEQ/L (21-32); CHLORIDE LEVEL 100 MEQ/L (98-107); CREATININE FOR GFR 0.72 MG/DL (0.55-1.02); GLOMERULAR FILTRATION RATE > 60.0 (>39); GLUCOSE, FASTING 123 MG/DL (83-110); MAGNESIUM LEVEL 2.6 MG/DL (1.8-2.4); POTASSIUM SERUM 4.3 MEQ/L (3.5-5.1); SODIUM LEVEL 139 MEQ/L (136-145); TOTAL PROTEIN 6.2 GM/DL (6.4-8.2)
[2016-05-13] MEDS: AQUAPHOR **100GM** OINT TOP SCH ×2 (09:37→21:47)
--- NOTE | 2016-05-13 10:42 | IPNPDOC ---
Text Note Date of Service The patient was seen on 05/13/16. NOTE Subjective: 76 yo F was seen and examined at bedside. Admits to fatigue which she states is chronic. She denies any dizziness, headache, fevers, chills, chest pain, SOB while sitting up, nausea currently, vomiting, diarrhea, constipation, abdominal pain, rashes/lesions, dysuria, hematuria, hematochezia, or pain. Reports she feels alright. She reports no acute events overnight. Nursing reports no acute overnight events, but states there is an issue with the patient 's R low jaw wound leaking fluids when patient intakes fluids. Patient's son reports patient has severe loss of appetite in which she has not eaten lunch or dinner yesterday, but only drank some orange juice and drank some water. Patient admits she has nausea at times but also does not feel like eating. Son also states patient had physical therapy and did great--walked out of bed the most she has since she's been in the hospital. In addition, nursing reports patient had some SOB overnight and was increased from 1 to 2 liters of oxygen, but should be on 1 liter of oxygen now according to what she was informed. According to PT progress note from 05/12/16: "Pt demonstrates some improvement this session from previous session w/ increased ambulation distances. Pt's demonstrated limitations w/functional mobility secondary to fatigue. Will plan to increase ambulation distance next session." Objective: Vitals: T96.9, P 60 , RR 17 , BP 127/58 (81), Pulse Ox: 93% on 2L NC. I's/O's: 240/400 mls. -160 mLs balance Incontinent Voids: 1 BMs: 0 yesterday. Wt: 56.6 kg down from 60.5 kg yesterday. General: Pleasant thin cachectic elderly female sitting up comfortably in bed. Has R-sided lower jaw dark blue/black facial lesion with clean dry dressing in place. Patient awake, alert and oriented, verbal and able to answer questions appropriately. She does not appear to be in any acute distress. HEENT: Normocephalic Atraumatic other than surgical site area on R chin/R anterior neck. Grossly normal hearing bilaterally. Sclera Nonicteric. No external nasal lesions. Endocrinology: No thyromegaly. Neck: Supple. No cervical LAD bilaterally. Enlarged neck veins. Heart: Regular rate and rhythm, normal S1-S2. No murmurs, rubs, clicks or gallops Chest: Protuberance/mass on anterior upper mid-chest wall. Lungs: +Minimal crackles in middle and lower lung kennedy bilaterally much improved from yesterday, with clear but diminished breath sounds in upper lung kennedy. Increased inspiratory to expiratory ratio. No wheezes. Abdomen: Active bowel sounds, soft, nontender, no masses to palpation. Extremities: No clubbing, cyanosis. No pedal or ankle edema appreciable. Without amputations/deformities. MSK: Can sit up without dizziness. Vascular: +2 radial pulses and dorsalis pedis pulses bilaterally. Psychiatric: Normal affect. Laboratory data: Please see below. Imaging: No new imaging today. 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 1) Hypercalcemia: Have discontinued calcitonin 200 interunits q12 hours subq as patient's calcium WNL today at 9.2. Have discontinued IVF for now. Will hold lasix for now as patient's lung sound more clear today and patient does not seem to be fluid overloaded, is not c/o SOB. Continue to monitor Ca levels and optimize volume status. Monitor renal function and electrolytes with BMP. Replete electrolytes as necessary. Anticipate discharge tomorrow as patient is improving, however PT would like to work with her more to help her ambulate more distance today as stated above. 2) Large RUL Lung Mass found to be Stage IV Squamous Cell Carcinoma/Lung Cancer with mets to the rib: Patient has at least a 30 year smoking history. Patient already has an appointment with Dr. Vazquez on Monday at 11:15 AM to follow up as an outpatient for assessment for chemotherapy. K WNL today. Mg was a bit elevated at 2.6 so will encourage oral hydration. Na improved from yesterday to 139 from 149. Will continue to monitor this level and for any signs/symptoms of hypernatremia such as thirst, confusion, muscle twitching or spasms, etc. Follow up with Dr. Vazquez Oncology on MondayMay 16 or when appointment is scheduled. 3) Acute hypoxic respiratory failure: Patient satting 93% on 2 L nasal cannula. Patient may have to be chronically on oxygen now due to lung mass compression causing SOB. 4) Leukocytosis: WBC has gone up to 10.4 from 9.9 yesterday most likely due to decreased volume status. Continue to monitor CBC and for fevers. 5) Macrocytic Anemia: Hgb stable at 9.7 today. Likely dilutional from IV hydration. Continue to monitor. 6) Hypertension: BP stable as above. Will hold BP medications for now including hydralazine. 7) Constipation: Likely secondary to pain medication and hypercalcemia. Continue bowel regimen PRN: sodium biphosphate enema, magnesium hydroxide, dulcolax suppository. Had 0 BMs yesterday. Patient also has not eaten much yesterday as stated above. 8) Grade 1 Left Ventricular Diastolic Heart Failure: No complaints of chest pain or SOB while sitting up in bed. No palpitations. Continue to monitor for any symptomatology. 9) Right Facial Wound/Secondary to Basal Cell Carcinoma Resection status-post Surgery on 04/19/16: continue to monitor for any active symptomatology and fevers. No treatment warranted from IM perspective at this time. Can do sterile dry dressing changes daily for now. Son reports patient has appointment with surgeon who did operation in [place] ~May 23. 10) Anorexia: Began marinol 2.5 mg PO TID to stimulate appetite. Will see if any improvement with oral caloric intake. Anticipate discharge in 24 hours. Continue PT. Consider home care consult as PT notes state patient may need assistance due to motor stability issues. DVT ppx: continue mechanically SCDs. Immunizations as per protocol. VS,Fishbone, I+O VS, Fishbone, I+O Laboratory Tests 05/13/16 06:05 Calcium Level 9.2, Aspartate Amino Transf (AST/SGOT) 16, Alanine Aminotransferase (ALT/SGPT) 22, Alkaline Phosphatase 65, Total Bilirubin 0.2, Total Protein 6.2 L, Albumin 1.7 L, Red Blood Count 3.03 L, Mean Corpuscular Volume 98.9 H, Mean Corpuscular Hemoglobin 31.8, Mean Corpuscular Hemoglobin Concent 32.2, Red Cell Distribution Width 14.8 H Vital Signs Date Time Temp Pulse Resp B/P Pulse Ox O2 Delivery O2 Flow Rate FiO2 05/13/16 06:46 127/58 05/13/16 06:00 96.9 60 17 93 Nasal Cannula 2.0 I&O- Last 24 Hours up to 6 AM 05/13/16 06:00 Intake Total 240 ml Output Total 400 ml Balance -160 ml GME ATTESTATION GME ATTESTATION My preceptor for this patient encounter was Dr. Bob Chavez, and was physically present in the building during the encounter and was fully available. As needed, all aspects of the patient interview, examination, medical decision making process, and medical care plan development were reviewed and approved by the preceptor. Preceptor is aware and concurs with the plan as stated in the body of this note and will attest to such by his/her cosignature. BOB SCHULTZ OGME-1 May 13, 2016 10:41
--- NOTE | 2016-05-13 11:11 | CR ---
CONSULTATION NOTE: DATE OF SERVICE: 05/11/2016 REFERRING PHYSICIAN: Dr. Abbasi, hospitalist. 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 HISTORY OF PRESENT ILLNESS: Nora Arreguin is a 76-year-old female who was admitted on 05/08/2016 due to malaise. On evaluation, she was noted to be hypercalcemic and she was also worked up given elevated total serum protein. CT of the chest was obtained on 05/08/2016 as well as abdomen and pelvis for further workup. It revealed 9.8 cm mass in the right upper lobe with extension into the anterior ribs as well as a right hilar and mediastinal lymph node involvement as well. The mass was contiguous with the right hilar adenopathy. There were also right precarinal lymph nodes as well. She had evidence of nodules as well in the left lung. There was some necrosis in the lymph nodes and moderate bilateral pleural effusion and bibasilar atelectasis with a small pericardial effusion. 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 I was called to see this patient regarding this new diagnosis. Further staging studies with CT abdomen and pelvis only noted thickening of the adrenal glands without a discrete mass. No suspicious adenopathy was noted. Clinically, she endorsed some fatigue. No hemoptysis. She does have a cough, which is productive of sputum. She has also had some decrease of appetite as well. Her son is at her bedside. MR of the brain was negative for metastasis. PAST MEDICAL HISTORY: Hypertension Non-melanomatous skin cancer, status post excision. PAST SURGICAL HISTORY: Tubal ligation. Exploratory laparoscopy. MEDICATIONS: - hydralazine - magnesium oxide - calcitonin - labetalol - lisinopril - albuterol - [place] - Dulcolax as needed - Zofran as needed ALLERGIES: No known drug allergies. SOCIAL HISTORY: She has on a 20-pack year history of tobacco use. She quit over 30 years. No alcohol. Her son is a the bedside. FAMILY HISTORY: Unremarkable for malignancy. PHYSICAL EXAMINATION: VITALS: Blood pressure 137/67, oxygen saturation 96% on 2 liters nasal cannula, temperature is 97.0, ECOG of 2. GENERAL: Elderly female in no acute distress. HEENT: No pallor, anicteric sclerae. Moist mucous membranes. Oral pharynx is clear. NECK: Supple. HEART: Regular rate and rhythm. Normal S1, S2. RESPIRATORY: Lungs: Bibasilar crackles. No wheezes, rhonchi or rales. ABDOMEN: Soft, nontender, nondistended. No hepatosplenomegaly or masses. EXTREMITIES: Trace edema. IMPRESSION AND PLAN: 76-year-old female with new diagnosis of stage IV squamous cell carcinoma of the lung with a prior large right upper lobe mass invading the right ribs anteriorly. Staging studies included MRI of the brain which was negative and CT scan of the abdomen and pelvis is unrevealing for extrathoracic involvement. I discussed with the family at bedside today regarding management of her new stage IV lung cancer. I would like to send her tumor for further molecular testing to determine if she is a candidate for treatment in that regard. Once her staging study is completed with a PET scan and when she is discharged, and she will revisit to the clinic once she is stable. cc: Carla Abbasi MD
[2016-05-13] MEDS: CALCITONIN SALMON (MIACALCIN) 400INTERNATIONAL UNITS/2ML INJ (J0630) SQ SCH (11:40)
[2016-05-13] MEDS: DRONABINOL 2.5 MG CAP (MARINOL) PO SCH ×2 (12:30→17:49)
[2016-05-13 14:00] VITALS: BP 138/62
[2016-05-13] MEDS: ONDANSETRON 4MG/2ML VIAL (J2405) IV PRN (20:00)
[2016-05-13] MEDS: LISINOPRIL 40 MG TAB PO SCH (21:48)
[2016-05-13] MEDS: LABETALOL 200 MG TAB PO SCH (21:48)
[2016-05-13] MEDS: NORCO, ANEXSIA 5/325MG TABLET (HYDROcodone/ACETAMINOPHEN) PO PRN (21:56)
[2016-05-13 22:00] VITALS: BP 133/59
[2016-05-14 06:00] VITALS: BP 115/54
[2016-05-14] MEDS: **hydrALAZINE** 10 MG TAB PO SCH ×3 (06:00→20:50)
[2016-05-14 06:35] LABS: MEAN CORPUSCULAR HEMOGLOBIN 30.7 pg (27.0-33.0); MEAN CORPUSCULAR HGB CONC 31.2 g/dl (32.0-36.5); MEAN CORPUSCULAR VOLUME 98.4 fl (80.0-96.0); RED CELL DISTRIBUTION WIDTH 14.6 % (11.5-14.5); WHITE BLOOD COUNT 11.7 K/mm3 (4.0-10.0)
[2016-05-14 06:49] LABS: ALBUMIN 1.7 GM/DL (3.2-5.2); ALBUMIN/GLOBULIN RATIO 0.37 (1.00-1.93); ALKALINE PHOSPHATASE 66 U/L (45-117); ALT/SGPT 26 U/L (12-78); ANION GAP 6 MEQ/L (8-16); AST/SGOT 23 U/L (15-37); BILIRUBIN,TOTAL 0.3 MG/DL (0.2-1.0); BLOOD UREA NITROGEN 16 MG/DL (7-18); CALCIUM LEVEL 9.2 MG/DL (8.8-10.2); CARBON DIOXIDE LEVEL 32 MEQ/L (21-32); CHLORIDE LEVEL 100 MEQ/L (98-107); CREATININE FOR GFR 0.77 MG/DL (0.55-1.02); GLOMERULAR FILTRATION RATE > 60.0 (>39); GLUCOSE, FASTING 99 MG/DL (83-110); MAGNESIUM LEVEL 2.8 MG/DL (1.8-2.4); POTASSIUM SERUM 4.1 MEQ/L (3.5-5.1); SODIUM LEVEL 138 MEQ/L (136-145); TOTAL PROTEIN 6.3 GM/DL (6.4-8.2)
[2016-05-14] MEDS: AQUAPHOR **100GM** OINT TOP SCH ×2 (08:34→20:49)
[2016-05-14] MEDS: DRONABINOL 2.5 MG CAP (MARINOL) PO SCH ×3 (08:34→17:08)
[2016-05-14] MEDS: MOM 30ML SUSPENSION UDC PO SCH (09:00)
--- NOTE | 2016-05-14 09:57 | IPNPDOC ---
Text Note Date of Service The patient was seen on 05/14/16. NOTE Subjective: 76 yo F was seen and examined at bedside. She denies any dizziness, headache, fevers, chills, chest pain, SOB while sitting up, nausea, vomiting, diarrhea, abdominal pain, rashes/lesions, dysuria, hematuria, hematochezia, or pain. Admits to constipation and loss of appetite. She reports no acute events overnight. Nursing reports no acute overnight events, but states that patient's family is concerned and would like treatment for the R lower mandibular wound/ BCC surgical site, as it may be interfering with her appetite. Patient herself states that when she tries to eat, she has a weird unpleasant taste in her mouth. Patient states her appetite is still not much improved, but she is going to try to eat for herself so she can get stronger and better. According to Nutrition Consult 05/13/16: Patient has lost 2 lbs: 6.9 kg since 05/08. BMI: 25.2 Nutritional Diagnoses: Increased Protein Needs Estimated Caloric Needs: 1455 Proteins: 77-92 g Fluids: 1500 mLs Offer Ensure/Enlive with each meal. Additional calories provided: 1050 calories Additional calories provided-Protein: 60 g Goals: Patient to consume greater than or equal to 75% meals at least 2x daily. According to PT Progress Note 05/13/16: "No PT today due to time constraints. Will schedule pt to be seen for PT over the weekend." Objective: Vitals: T96.7, P 60 , RR 18 , BP 115/54 (74), Pulse Ox: 91% on 1L NC. I's/O's: 300/0 mls. +300 mLs balance, Incontinent Voids: None reported. Voids: None reported. BMs: 0. Wt: 56.5 kg down from 56.6 kg yesterday. General: Pleasant thin cachectic elderly female sitting up comfortably in bed. Has R-sided lower jaw dark blue/black facial lesion with clean dry dressing in place. Patient awake, alert and oriented, verbal and able to answer questions appropriately. She does not appear to be in any acute distress. HEENT: Normocephalic Atraumatic other than surgical site area on R chin/R anterior neck. Grossly normal hearing bilaterally. Sclera Nonicteric. No external nasal lesions. Endocrinology: No thyromegaly. Neck: Supple. No cervical LAD bilaterally. Enlarged neck veins. Heart: Regular rate and rhythm, normal S1-S2. No murmurs, rubs, clicks or gallops Chest: Protuberance/mass on anterior upper mid-chest wall. Symmetrical chest rise bilaterally. Lungs: Clear to auscultation bilaterally much improved from prior, however diminished breath sounds in all lung kennedy. Increased inspiratory to expiratory ratio. No wheezes. Abdomen: Active bowel sounds, soft, nontender, no masses to palpation. Extremities: No clubbing, cyanosis. No pedal or ankle edema appreciable. Without amputations/deformities. MSK: Can sit up without dizziness. Vascular: +2 radial pulses and dorsalis pedis pulses bilaterally. Psychiatric: Normal affect. Laboratory data: Please see below. Imaging: No new imaging today. 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 1) Hypercalcemia: Calcium stable and normal at 9.2. Have discontinued IVF for now. Will hold lasix for now as patient's lung sound more clear today and patient does not seem to be fluid overloaded, is not c/o SOB. Continue to monitor Ca levels and optimize volume status. Monitor renal function and electrolytes with BMP. Replete electrolytes as necessary. K WNL today. Mg was a bit elevated at 2.8 from 2.6 yesterday, so will encourage oral hydration. Anticipate discharge next week as patient needs more PT for strengthening and safety measures this weekend. Will follow up with PT recommendations until patient is stable for discharge or placement to rehabilitation center, hospice, or home care. 2) Large RUL Lung Mass found to be Stage IV Squamous Cell Carcinoma/Lung Cancer with mets to the rib: Patient has at least a 30 year smoking history. Patient already has an appointment with Dr. Vazquez on Monday at 11:15 AM to follow up as an outpatient for assessment for chemotherapy. Follow up with Dr. Vazquez Oncology on MondayMay 16 or when appointment is scheduled or may need to arrange a later appointment date as discharge/disposition status is unclear at this time due to PT clearance and patient's deconditioning/stability/safety to go home. 3) Acute hypoxic respiratory failure: Patient satting 91% on 1 L nasal cannula. Patient may have to be chronically on oxygen now due to lung mass compression causing SOB. 4) Leukocytosis: WBC has gone up to 11.7 from 10.4 yesterday most likely due to decreased volume status. Continue to monitor CBC and for fevers. 5) Macrocytic Anemia: Hgb stable at 9.6 today. Likely dilutional from IV hydration. Continue to monitor. 6) Hypertension: BP stable as above. Will hold BP medications for now including hydralazine with hold parameters. 7) Constipation: Likely secondary to pain medication and hypercalcemia. Continue bowel regimen PRN: sodium biphosphate enema, magnesium hydroxide, dulcolax suppository. May add milk of magnesia today to help. Had 0 BMs yesterday or today. Patient also is eating less and has loss of appetite, which may be somewhat contributing to her constipation as well. 8) Grade 1 Left Ventricular Diastolic Heart Failure: No complaints of chest pain or SOB while sitting up in bed. No palpitations. Continue to monitor for any symptomatology. 9) Right Facial Wound/Secondary to Basal Cell Carcinoma Resection status-post Surgery on 04/19/16: continue to monitor for any active symptomatology and fevers. No treatment warranted from IM perspective at this time. Can do sterile dry dressing changes daily for now. Son reports patient has appointment with surgeon who did operation in [place] ~May 23. There is no content production specialist that sees patients at the hospital. Patient may need plastic surgeon , which is out of the scope of this hospital. 10) Anorexia: Began marinol 2.5 mg PO TID to stimulate appetite. Will see if any improvement with oral caloric intake. Patient reports no improvement yet. Will continue to monitor. 11) Decubitis Ulcer Sacrum Stage 2 and Stage 1 Surrounding: Continue position changes as prior and to move patient up and out of bed as much as possible. Continue current management. Discharge/Disposition Status: Unclear at this time. Will reevaluate on Monday after physical therapy assessments. Will also look into patient's requested options, which we have discussed that include: rehabilitation, home care nursing , hospice. Does not seem safe to discharge patient home due to safety issues and instability according to PT. Continue PT. Consider home care consult. DVT ppx: continue mechanically SCDs. Immunizations as per protocol. VS,Fishbone, I+O VS, Fishbone, I+O Laboratory Tests 05/14/16 06:05 Calcium Level 9.2, Aspartate Amino Transf (AST/SGOT) 23, Alanine Aminotransferase (ALT/SGPT) 26, Alkaline Phosphatase 66, Total Bilirubin 0.3, Total Protein 6.3 L, Albumin 1.7 L, Red Blood Count 3.12 L, Mean Corpuscular Volume 98.4 H, Mean Corpuscular Hemoglobin 30.7, Mean Corpuscular Hemoglobin Concent 31.2 L, Red Cell Distribution Width 14.6 H Vital Signs Date Time Temp Pulse Resp B/P Pulse Ox O2 Delivery O2 Flow Rate FiO2 05/14/16 08:35 115/54 05/14/16 06:00 96.7 60 18 91 Nasal Cannula 05/13/16 21:30 1.0 I&O- Last 24 Hours up to 6 AM 05/14/16 05:59 Intake Total 340 ml Output Total 300 ml Balance 40 ml GME ATTESTATION GME ATTESTATION My preceptor for this patient encounter was Dr. Bob Chavez, and was physically present in the building during the encounter and was fully available. As needed, all aspects of the patient interview, examination, medical decision making process, and medical care plan development were reviewed and approved by the preceptor. Preceptor is aware and concurs with the plan as stated in the body of this note and will attest to such by his/her cosignature. BOB SCHULTZ OGME-1 May 14, 2016 09:57
[2016-05-14 14:00] VITALS: BP 124/57
[2016-05-14] MEDS: NORCO, ANEXSIA 5/325MG TABLET (HYDROcodone/ACETAMINOPHEN) PO PRN (19:31)
[2016-05-14] MEDS: LISINOPRIL 40 MG TAB PO SCH (20:48)
[2016-05-14] MEDS: LABETALOL 200 MG TAB PO SCH (20:49)
[2016-05-14 22:00] VITALS: BP 131/59
[2016-05-15 06:00] VITALS: BP 123/58
[2016-05-15] MEDS: **hydrALAZINE** 10 MG TAB PO SCH ×3 (06:00→22:00)
[2016-05-15 06:21] LABS: MEAN CORPUSCULAR HEMOGLOBIN 30.9 pg (27.0-33.0); MEAN CORPUSCULAR HGB CONC 31.4 g/dl (32.0-36.5); MEAN CORPUSCULAR VOLUME 98.4 fl (80.0-96.0); RED CELL DISTRIBUTION WIDTH 14.5 % (11.5-14.5); WHITE BLOOD COUNT 10.8 K/mm3 (4.0-10.0)
[2016-05-15 06:41] LABS: ALBUMIN 1.8 GM/DL (3.2-5.2); ALBUMIN/GLOBULIN RATIO 0.38 (1.00-1.93); ALKALINE PHOSPHATASE 67 U/L (45-117); ALT/SGPT 28 U/L (12-78); ANION GAP 6 MEQ/L (8-16); AST/SGOT 29 U/L (15-37); BILIRUBIN,TOTAL 0.4 MG/DL (0.2-1.0); BLOOD UREA NITROGEN 19 MG/DL (7-18); CARBON DIOXIDE LEVEL 30 MEQ/L (21-32); CHLORIDE LEVEL 101 MEQ/L (98-107); CREATININE FOR GFR 0.88 MG/DL (0.55-1.02); GLOMERULAR FILTRATION RATE > 60.0 (>39); GLUCOSE, FASTING 91 MG/DL (83-110); MAGNESIUM LEVEL 2.5 MG/DL (1.8-2.4); POTASSIUM SERUM 4.2 MEQ/L (3.5-5.1); SODIUM LEVEL 137 MEQ/L (136-145); TOTAL PROTEIN 6.5 GM/DL (6.4-8.2)
[2016-05-15] MEDS: DRONABINOL 2.5 MG CAP (MARINOL) PO SCH ×3 (07:55→17:45)
[2016-05-15] MEDS: MOM 30ML SUSPENSION UDC PO SCH (09:50)
[2016-05-15] MEDS: AQUAPHOR **100GM** OINT TOP SCH ×2 (09:50→22:06)
--- NOTE | 2016-05-15 11:29 | IPNPDOC ---
Subjective Date Seen The patient was seen on 05/15/16. Subjective Chief Complaint/HPI The patient is a 76-year-old female admitted with a reason for visit of Hypercalcemia. General: Denies: Chills, Night Sweats Constitutional: Denies: Chills, Fever Eyes: Denies: Pain, Vision change ENT: Reports: Other Symptoms (Drainage noted from the right side of the chin from previous skin excision site), Denies: Ear Pain, Head Aches Pulmonary: Denies: Cough, Dyspnea Cardiovascular: Denies: Chest Pain, Palpitations Gastrointestinal: Denies: Nausea, Vomiting Genitourinary: Denies: Dysuria, Frequency Hematologic: Denies: Bleeding Excessively, Bruising Objective Physical Examination General Exam: Positive: Alert, Cooperative, No Acute Distress ENT Exam: Positive: Atraumatic, Mucous membr. moist/pink, Other ENT (Patient noted to have excision site on the lower right side of chin. Covered in a band- aid at this time with no active drainage.) Neck Exam: Negative: JVD Chest Exam: Positive: Clear to auscultation, Normal air movement Heart Exam: Positive: Normal S1, Normal S2, Rate Normal Abdomen Exam: Positive: Soft, Negative: Tenderness Extremity Exam: Negative: Swelling, Tenderness Assessment /Plan Plan/VTE VTE Prophylaxis Ordered?: Yes Plan Moderately differentiated squamous cell carcinoma of the lung Status post needle biopsy on 05/09 Oncology on Board, Dr. Almaguer's input appreciated-->Patient to follow up with Dr. Vazquez as an outpatient At this time, the patient's family is requesting a transfer to [facility] for inpatient chemotherapy-I will give the [facility] a call today to follow-up on the patient's and family's request. Symptomatic hypercalcemia 2/2 underlying malignancy Initial presenting corrected calcium at 14.5 PTH, PTHrP and Vitamin D (25OH) studies noted s/p IVF Hydration, Lasix, and Pamidronate Patient's Corrected Ca 10.5 this AM, and continues to trend downward We will cont to monitor Acute hypoxic respiratory failure - likely 2/2 fluid overload, underlying Lung Ca s/p Lasix for hypervolemia, appears volume optimized at this time Patient requiring 1-2L of Oxygen and resting comfortably at this time Right facial wound 2/2 to Basal Cell CA resection s/p resection on 04/19 Patient will need to follow up with Plastic Surgeon, and has a scheduled appt on 05/23 for further evaluation and management The site does not appear to be inflamed, erythematous, or tender to palpation No fevers noted here We will continue to monitor and change dressings/band-aids accordingly HTN, controlled Continue Lisinopril DVT prophylaxis Lovenox Disposition: We will continue to have the patient to work with PT to assess for Home w/ Services vs Rehab. At this time, the patient's family is recommending a possible transfer to [facility] for inpatient chemotherapy treatment. We will place a call to the [facility] to see if they would accept the patient at their facility. VS, I&O, 24H, Fishbone Vital Signs/I&O Vital Signs Date Time Temp Pulse Resp B/P Pulse Ox O2 Delivery O2 Flow Rate FiO2 05/15/16 06:00 123/58 05/15/16 06:00 98.0 61 20 94 Nasal Cannula 1.0 I&O- Last 24 Hours up to 6 AM 05/15/16 06:00 Intake Total 880 ml Output Total 400 ml Balance 480 ml Laboratory Data 24H LABS Laboratory Tests 2 05/15/16 05:59: Blood Urea Nitrogen 19H, Creatinine 0.88, Sodium Level 137, Potassium Level 4.2 , Chloride Level 101, Carbon Dioxide Level 30, Calcium Level 9.0, Aspartate Amino Transf (AST/SGOT) 29, Alanine Aminotransferase (ALT/SGPT) 28, Alkaline Phosphatase 67, Total Bilirubin 0.4, Total Protein 6.5, Albumin 1.8L, Albumin/ Globulin Ratio 0.38L, Anion Gap 6L, Glomerular Filtration Rate > 60.0, Magnesium Level 2.5H CBC/BMP Laboratory Tests 05/15/16 05:59 Calcium Level 9.0, Aspartate Amino Transf (AST/SGOT) 29, Alanine Aminotransferase (ALT/SGPT) 28, Alkaline Phosphatase 67, Total Bilirubin 0.4, Total Protein 6.5, Albumin 1.8 L, Red Blood Count 3.20 L, Mean Corpuscular Volume 98.4 H, Mean Corpuscular Hemoglobin 30.9, Mean Corpuscular Hemoglobin Concent 31.4 L, Red Cell Distribution Width 14.5 Microbiology Microbiology 05/08/16 Wound Culture - Final, Complete Staphylococcus Sp Coag Neg Streptococcus Viridans Group Corynebacterium Species TEGAN SALAZAR MD May 15, 2016 11:29
[2016-05-15] MEDS: ENOXAPARIN 30 MG/0.3 ML SYR (J1650) SC SCH (11:42)
[2016-05-15 14:00] VITALS: BP 135/63
[2016-05-15] MEDS: BISACODYL 10 MG SUPP PR PRN (16:39)
[2016-05-15] MEDS: ACETAMINOPHEN TAB 650MG DOSE (2X325MG) PO PRN (17:45)
[2016-05-15] MEDS: LISINOPRIL 40 MG TAB PO SCH (21:00)
[2016-05-15] MEDS: LABETALOL 200 MG TAB PO SCH (21:00)
[2016-05-15 22:00] VITALS: BP 93/52
[2016-05-16 06:00] VITALS: BP 134/61
[2016-05-16 06:52] LABS: ANION GAP 6 MEQ/L (8-16); BLOOD UREA NITROGEN 19 MG/DL (7-18); CALCIUM LEVEL 8.6 MG/DL (8.8-10.2); CARBON DIOXIDE LEVEL 28 MEQ/L (21-32); CHLORIDE LEVEL 103 MEQ/L (98-107); CREATININE FOR GFR 0.83 MG/DL (0.55-1.02); GLOMERULAR FILTRATION RATE > 60.0 (>39); GLUCOSE, FASTING 108 MG/DL (83-110); POTASSIUM SERUM 4.3 MEQ/L (3.5-5.1); SODIUM LEVEL 137 MEQ/L (136-145)
[2016-05-16] MEDS: **hydrALAZINE** 10 MG TAB PO SCH ×3 (06:53→23:11)
[2016-05-16] MEDS: DRONABINOL 2.5 MG CAP (MARINOL) PO SCH ×3 (08:12→17:13)
[2016-05-16] MEDS: ENOXAPARIN 30 MG/0.3 ML SYR (J1650) SC SCH (08:13)
[2016-05-16] MEDS: MOM 30ML SUSPENSION UDC PO SCH (08:13)
[2016-05-16] MEDS: AQUAPHOR **100GM** OINT TOP SCH ×2 (08:13→20:53)
--- NOTE | 2016-05-16 10:04 | IPNPDOC ---
Text Note Date of Service The patient was seen on 05/16/16. NOTE Subjective: 76 yo F was seen and examined at bedside. She denies any dizziness, headache, fevers, chills, chest pain, SOB while sitting up, nausea, vomiting, diarrhea, constipation, abdominal pain, rashes/lesions, dysuria, hematuria, hematochezia, or pain. Appetite has improved according to daughter who is at bedside who reports patient has been eating more of her meals. She reports no acute events overnight. Nursing reports no acute overnight events, but states that patient's family is concerned and would like treatment for the R lower mandibular wound/BCC surgical site. According to PT Progress Note 05/14/16: PT recommends home with services. Patient is not safe for discharge. Objective: Vitals: T 96.3, P 68, RR 18, BP 134/61 (85), Pulse Ox:93% on 1L NC. I's/O's: 540/325 mls yesterday. +215 mLs balance, Incontinent Voids: None reported. Voids: None reported. BMs: 3 yesterday, 1 today. Wt: 59 kg up from 58.2 kg yesterday. General: Pleasant thin cachectic elderly female sitting up comfortably in bed. Has R-sided lower jaw dark blue/black facial lesion/incisional site which seems to be open with clean dry dressing in place. Patient awake, alert and oriented, verbal and able to answer questions appropriately. She does not appear to be in any acute distress. HEENT: Normocephalic Atraumatic other than surgical site area on R chin/R anterior neck which seems to be noninfected with no active drainage. Grossly normal hearing bilaterally. Sclera Nonicteric. No external nasal lesions. Endocrinology: No thyromegaly. Neck: Supple. No cervical LAD bilaterally. Heart: Regular rate and rhythm, normal S1-S2. No murmurs, rubs, clicks or gallops Chest: Protuberance/mass on anterior upper mid-chest wall. Symmetrical chest rise bilaterally. Lungs: Minor crackles heard in middle lung kennedy and bases bilaterally. However , diminished breath sounds in all lung kennedy. Increased inspiratory to expiratory ratio. No wheezes. Abdomen: Active bowel sounds, soft, nontender, no masses to palpation. Extremities: No clubbing, cyanosis. +Tenderness to palpation of lower extremities bilaterally. No pedal or ankle edema appreciable. Without amputations/deformities. MSK: Can sit up without dizziness. Vascular: +2 radial pulses and dorsalis pedis pulses bilaterally. Psychiatric: Normal affect. Laboratory data: Please see below. Imaging: No new imaging today. 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 1) Hypercalcemia status-post IVF hydration and pamidronate: Calcium trending down from corrected of 10.5 yesterday to 10.36 today. Have discontinued IVF for now. Will hold lasix for now as patient does not seem to be fluid overloaded, is not c/o SOB. Continue to monitor Ca levels and optimize volume status. Monitor renal function and electrolytes with BMP. Replete electrolytes as necessary. K WNL today. Encourage oral hydration. Anticipate discharge sometime this week as patient needs more PT for strengthening and safety measures. director of student financial services consult in place to evaluate for home care with services vs. rehabilitation vs. other options. Will follow up with PT recommendations until patient is stable for discharge or placement to rehabilitation center, hospice, or home care. 2) Large RUL Lung Mass found to be Stage IV Moderately Differentiated Squamous Cell Carcinoma/Lung Cancer with mets to the rib: Patient has at least a 30 year smoking history. Patient's appointment canceled today with Dr. Vazquez at 11 :15 AM for assessment for chemotherapy as patient is not cleared for discharge and placement has to be finalized. Follow up with Dr. Vazquez Oncology as outpatient when discharge final. 3) Acute hypoxic respiratory failure status-post lasix for Hypervolemia: Patient satting 93% on 1 L nasal cannula. Patient may have to be chronically on oxygen now due to lung mass compression causing SOB. 4) Leukocytosis: WBC has gone down to 10.8 from 11.7 yesterday. Continue to monitor CBC and for fevers. 5) Macrocytic Anemia: Hgb stable at 9.9 today. Continue to monitor. 6) Hypertension: BP stable as above. Will hold BP medications for now including hydralazine with hold parameters. 7) Constipation: Likely secondary to pain medication and hypercalcemia. Continue bowel regimen PRN: sodium biphosphate enema, magnesium hydroxide, dulcolax suppository. May add milk of magnesia today to help. Had 3 BMs yesterday and 1 today. Patient states appetite improved and is eating more than before. 8) Grade 1 Left Ventricular Diastolic Heart Failure: No complaints of chest pain or SOB while sitting up in bed. No palpitations. Continue to monitor for any symptomatology. 9) Right Facial Wound/Secondary to Basal Cell Carcinoma Resection status-post Surgery on 04/19/16: continue to monitor for any active symptomatology and fevers. No treatment warranted from IM perspective at this time. Can do sterile dry dressing changes daily for now. Son reports patient has appointment with surgeon who did operation in [place] ~May 23. There is no behavior specialist that sees patients at the hospital. Patient recommended to follow up with her plastic surgeon after discharge to address facial wound, which is out of the scope of this hospital. 10) Anorexia: Began marinol 2.5 mg PO TID to stimulate appetite. There is improvement in appetite and the patient is eating more. Patient's weight has gone up from 58.2 kg to 59 kg. Will continue to monitor. 11) Decubitis Ulcer Sacrum Stage 2 and Stage 1 Surrounding: Continue position changes as prior and to move patient up and out of bed as much as possible. Continue current management. Discharge/Disposition Status: Unclear at this time. Will reevaluate and wait for physical therapy assessments/clearance. Will also look into patient's requested options, which we have discussed that include: rehabilitation, home care nursing, hospice. Does not seem safe to discharge patient home due to safety issues and instability according to PT. Continue PT. director of student financial services consult in place. DVT ppx: continue mechanically SCDs. Immunizations as per protocol. VS,Fishbone, I+O VS, Fishbone, I+O Laboratory Tests 05/16/16 06:25 Calcium Level 8.6 L Vital Signs Date Time Temp Pulse Resp B/P Pulse Ox O2 Delivery O2 Flow Rate FiO2 05/16/16 06:53 134/61 05/16/16 06:00 96.3 68 18 93 Nasal Cannula 1.0 I&O- Last 24 Hours up to 6 AM 05/16/16 06:00 Intake Total 540 ml Output Total 125 ml Balance 415 ml GME ATTESTATION GME ATTESTATION My preceptor for this patient encounter was Dr. Bob Chavez, and was physically present in the building during the encounter and was fully available. As needed, all aspects of the patient interview, examination, medical decision making process, and medical care plan development were reviewed and approved by the preceptor. Preceptor is aware and concurs with the plan as stated in the body of this note and will attest to such by his/her cosignature. BOB SCHULTZ OGME-1 May 16, 2016 10:04
[2016-05-16 14:00] VITALS: BP_SYST 116; BP_SYST 90; BP_DIAS 50; BP_DIAS 56
[2016-05-16] MEDS: IPRATROPIUM 0.5MG/ALBUTEROL 2.5MG INH SOL UD 3ML (DUONEB)(J7620) NEB SCH ×2 (14:00→20:00)
[2016-05-16] MEDS ORDERED: IPRATROPIUM 0.5MG/ALBUTEROL 2.5MG INH SOL UD 3ML (DUONEB)(J7620) NEB PRN (14:00)
[2016-05-16] MEDS: LABETALOL 200 MG TAB PO SCH (20:52)
[2016-05-16] MEDS: LISINOPRIL 40 MG TAB PO SCH (20:52)
[2016-05-16] MEDS ORDERED: MUPIROCIN 2% OINT 22 GM TUBE TOP SCH (21:00)
[2016-05-16 22:00] VITALS: BP 146/69
[2016-05-16] MEDS ORDERED: NORCO, ANEXSIA 5/325MG TABLET (HYDROcodone/ACETAMINOPHEN) PO PRN (23:00)
[2016-05-16 23:11] VITALS: BP 134/61
[2016-05-16 23:31] VITALS: BP 134/61
--- NOTE | 2016-05-17 03:12 | DS.PDOC ---
Discharge Summary General Date of Admission May 08, 2016 at 14:50 Date of Discharge May 16, 2016 at 23:33 Specialist/Consultants Involve Dr Scooter Almaguer of Heme/Onc Discharge Summary PROCEDURES PERFORMED DURING STAY: Lung Biopsy ADMITTING DIAGNOSES: 1. .Squamos Cell Lung Ca 2. 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 Hypercalcemia DISCHARGE DIAGNOSES: 1. .Squamos Cell Lung Ca 2. s/p Excision of Skin Tumor on Right Mandibular area 3. Hypercalcemia COMPLICATIONS/CHIEF COMPLAINT: Hypercalcemia. HISTORY OF PRESENT ILLNESS: 76 y/o F with PMH of Htn, chronic lower extremity pain, and recent skin excision of a tumor of the right mandible at [facility] on 04/19/16 presented to [facility] with the chief complaint of increasing lethargy and weakness over the preceding 3 weeks. At baseline the patient had been independent with her ADL's and fairly active not requiring any executive assistant to president devices for ambulation. However, during this time she had become increasingly weak and started to sleep on her recliner chair as she could not even go up the stairs due to the lack of energy/strength. She also noted a significant decrease in appetite and weight loss during this time. She denied any acute c/o fevers, chills, chest pain, palpitations, abdominal pain. In the ER, the patient was noted to have hypercalcemia with a serum calcium of 14.4. The hospitalist team subsequently admitted the patient for further work up. During her stay in the hospital. A CT scan of the Chest was obtained, and this revealed a large RUL mass, hilar lymphadenopathy, and spread of the mass into the anterior portion of a rib on the right side. 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 Subsequent studies such as an MRI of the Brain and CT of the Abd/Pel revealed no other acute findings. An oncology consult was obtained and outpatient follow up and chemotherapy was recommended. However, the patient could not clear PT as she remained too weak. [facility] was subsequently called for transfer of the patients care for inpatient chemotherapy, as we do not have that capability here at [facility]. As for the patients hypercalcemia, this was treated with fluids, diuretics, and pamidronate therapy. Her calcium level and other hemodynamics as well as lab work has been stabilized. We will prepare the patient for transfer at this time. DISCHARGE MEDICATIONS: Please see below. ALLERGIES: Please see below. PHYSICAL EXAMINATION ON DISCHARGE: VITAL SIGNS: Please see below. GENERAL: awake, alert, oriented HEENT: patient noted to have an eschar on the right mandibular region following skin excision of tumor. No purulant drainage, surrounding erythema, or tenderness noted NECK: No JVD CARDIOVASCULAR EXAMINATION: Normal Rate, Rhythm RESPIRATORY EXAMINATION: Diminshed breath sounds on Right vs Left. ABDOMINAL EXAMINATION: Soft, NT, ND EXTREMITIES: No swelling or tenderness LABORATORY DATA: Please see below. IMAGING: RUL Mass with extension into the Anterior Portion of Right sided 4th Rib, as well as hilar lymphadenopathy noted on CT Chest. MRI Brain and CT Abd/ Pel with no acute findings of discrete masses noted. Mammogram noted to be BiRADS 2, benign. PROGNOSIS: Poor Skilled Nursing Prognosis ACTIVITY: As tolerated DIET: As tolerated DISCHARGE PLAN: DISPOSITION: O4 Xfer Icf. DISCHARGE INSTRUCTIONS: 1. F/U with Oncology Team at [facility] for further evaluation and management of Cancer care 2. F/U with PCP thereafter for management of other chronic co-morbidities ITEMS TO FOLLOWUP ON ON OUTPATIENT: 1. F/U with [facility] for eval and management of Right Mandibular facial wound following recent biopsy DISCHARGE CONDITION: Medically Stable at this time TIME SPENT ON DISCHARGE: Greater than 30 minutes. Vital Signs/I&Os Vital Signs Date Time Temp Pulse Resp B/P Pulse Ox O2 Delivery O2 Flow Rate FiO2 05/16/16 23:31 98.1 75 18 134/61 92 05/16/16 22:00 Nasal Cannula 1.0 I&O- Last 24 Hours up to 6 AM 05/17/16 06:00 Intake Total 720 ml Output Total 300 ml Balance 420 ml Laboratory Data Labs 24H Laboratory Tests 2 05/16/16 06:25: Anion Gap 6L, Blood Urea Nitrogen 19H, Creatinine 0.83, Sodium Level 137, Potassium Level 4.3, Chloride Level 103, Carbon Dioxide Level 28, Calcium Level 8.6L, Glomerular Filtration Rate > 60.0 CBC/BMP Laboratory Tests 05/16/16 06:25 Calcium Level 8.6 L Microbiology Microbiology 05/08/16 Wound Culture - Final, Complete Staphylococcus Sp Coag Neg Streptococcus Viridans Group Corynebacterium Species Discharge Medications Scheduled Labetalol HCl (Labetalol HCl) 200 Mg Tab 200 MG PO QHS (Reported) Lisinopril (Lisinopril) 40 Mg Tab 40 MG PO QHS (Reported) Scheduled PRN Acetaminophen (Acetaminophen) 500 Mg Tab 1,000 MG PO Q8H PRN PRN PAIN / FEVER ( Reported) Acetaminophen/Hydrocodone ([place] [facility] 5-325 mg) 1 Tab Tab 1 TAB PO Q6H PRN PRN PAIN OR DYSPNEA (Reported) Albuterol Sulfate (Proventil Hfa) 167 Puff/6.7 Gm Aers 2 PUFFS INH Q6H PRN PRN SHORTNESS OF BREATH (Reported) Docusate Sodium (Stool Softener) 100 Mg Cap 100 MG PO BID PRN PRN CONSTIPATION ( Reported) Senna (Senokot) 8.6 Mg Tab 1 TAB PO PRN PRN PRN CONSTIPATION (Reported) Allergies Coded Allergies: No Known Allergies (Unverified , 05/08/16) TEGAN SALAZAR MD May 17, 2016 03:12
== END 2016-05-16 23:33 | disposition short-term general hospital (02) | DRG 181 ==
LOC: EDBD 10:48 → M ED 11:28 → M ED INP 14:50 → M PCU 16:09 → M MSPAV 05-11 13:00
PROVIDERS: ADMIT Internal Medicine; ATTEND Internal Medicine
PROC: 0B9C3ZX Drainage of Right Upper Lung Lobe, Percutaneous Approach, Diagnostic (ICD-10-PCS; principal; 2016-05-09)
DX: C34.11 Malignant neoplasm of upper lobe, right bronchus or lung (principal); R64 Cachexia; I50.32 Chronic diastolic (congestive) heart failure; E83.52 Hypercalcemia; I11.0 Hypertensive heart disease with heart failure; F17.210 Nicotine dependence, cigarettes, uncomplicated; R06.01 Orthopnea; R63.0 Anorexia; L89.152 Pressure ulcer of sacral region, stage 2; K59.00 Constipation, unspecified; D53.9 Nutritional anemia, unspecified; Z85.828 Personal history of other malignant neoplasm of skin; Z79.899 Other long term (current) drug therapy; Z79.891 Long term (current) use of opiate analgesic